=== PATIENT | male | born 1955 | race Caucasian/White ===

== ENCOUNTER → 2020-09-03 15:00 | Outpatient (CLI) | payer MEDICARE, SELFPAY ==
[2020-09-04 07:43] LABS: COVID19 Sendout Not Detected (Not Detect)
== END ==
PROVIDERS: PCP Internal Medicine; Visit Provider Physician Assistant
DX: Z11.59 Encounter for screening for other viral diseases (principal)
CPT/HCPCS: 87635

== ENCOUNTER 2020-09-06 12:07 | Day surgery (SDC) | payer MEDICARE, SELFPAY ==
--- NOTE | 2020-09-06 | PATH_ITS ---
[facility] Accession Number: [id number] . 01 Material submitted: . PART A: colon - EVANS COLITIS/COLON PART B: rectosigmoid junction - RECTOSIGMOID . 02 Diagnosis: A. Colon, Pancolitis, Biopsies: Moderately active colitis with associated distortion of the crypt architecture. Please see comment. Negative for CMV antigen by immunohistochemistry. Negative for granulomas, dysplasia, and malignancy. . B. Rectosigmoid, Biopsy: Severely active colitis with ulceration and associated distortion of the crypt architecture. Please see comment. Negative for CMV antigen by immunohistochemistry. Negative for granulomas, dysplasia, and malignancy. [facility] 09/13/2020 1631 Local . 02 Comment: A-B. There is active colitis associated with features of chronic inflammation, including branched crypt architecture and increased lymphocytes, plasma cells, and eosinophils in the lamina propria in both specimens. No obvious viral cytopathic effects or parasitic organisms are identified. The morphologic appearance could be compatible with idiopathic inflammatory bowel disease, in the appropriate clinical and endoscopic setting, if infection and medication related mucosal injury are excluded. . 02 Electronically signed: . Cayla Craig MD, Pathologist NPI- [id number] . 01 Gross description: . A. Received in formalin, labeled colon pancolitis, and consists of three garcia fragments of soft tissue measuring 0.5 x 0.4 x 0.2 cm in aggregate. The specimen is entirely submitted in cassette A1. B. Received in formalin, labeled rectosigmoid, and consists of three garcia fragments of soft tissue measuring 0.6 x 0.5 x 0.2 cm in aggregate. The specimen is entirely submitted in cassette B1. (EA:[id number]) /MRV 09/07/2020 1509 Local . 02 Microscopic: . A-B. Immunohistochemical stains were performed on blocks A and B in order to evaluate for CMV antigen and are both negative. The control stain showed appropriate reactivity. . * This test was developed and its performance characteristics determined by [facility]. It has not been cleared or approved by the U.S. Food and Drug Administration. The FDA has determined that such clearance or approval is not necessary. This test is used for clinical purposes. It should not be regarded as investigational or for research. . 02 Pathologist provided ICD-10: R19.7 . 02 CPT . 486363, 555100, N99244 Performed at: 01 [facility] [address] [facility], [place], [place] [id number] MD Jim Pickard MD Phone: [phone] Performed at: 02 [facility] [place] [address] [place], [place] [id number] MD Cayla Craig MD Phone: [phone]
[2020-09-06 12:32] VITALS: BP 138/92; PULSE 74; RESP 16; TEMP 35.9; O2SAT 100; BMI 25.1
--- NOTE | 2020-09-06 12:49 | SUR.PREOP ---
Dr. Coker notified that patient intends to take taxi to a [facility] and does not have help. Dr. Coker stated that if patient has a confirmed reservation for tonight at [facility] then he may take a taxi there rather than have someone pick him up. Called [facility] where patient stated he was staying and they verified that he does have a reservation there for tonight. Patient states that he will drive home to [place] after 24 hours after colonoscopy.
[2020-09-06] MEDS: SODIUM CHLORIDE 0.9% 1,000 ML 84 ML IV (13:02)
[2020-09-06] MEDS: fentaNYL 250 MCG/5 ML INJ IV (13:51)
[2020-09-06] MEDS: MIDAZOLAM 5 MG/5 ML VIAL IV (13:51)
--- NOTE | 2020-09-06 14:13 | P.OP.ENDO_ITS ---
Operative Date/Time/Diagnoses Date of procedure: 09/06/20 Pre-op diagnosis: See indication and findings Procedure & Clinicians Study performed: Colonoscopy Same procedure as scheduled: Yes Indications: Diarrhea and abnormal CT scan indicating thick-walled colon Surgeon: Racquel Coker Procedure Notes Procedure in detail: After informed consent was obtained the patient was placed in left lateral decubitus position. The video colonoscope was introduced the rectum slowly advanced to the cecum. Ic valve was identified and intubated. Preparation was only fair but given the indication completely acceptable for diagnosis. On slow withdrawal mucosa was carefully examined. Biopsies were t aken. The scope was removed. The patient tolerated procedure well. Blood loss none Complications none Sedation Total sedation time 18 minutes Versed 6 mg fentanyl 150 micro g IV titration Findings 1. Findings suggestive of ulcerative pancolitis. This included rectosigmoid with deep ulcerations in the rectum and then tapering amounts of inflammation throughout the remainder of the colon. In the right colon this meant some obliteration of the vascular pattern though incomplete and multiple small aphthous ulcers. Biopsies were taken throughout the colon. Another bottle was taken in the rectosigmoid given the increased severity of findings. 2. Normal terminal ileum I will inform Dr Branch of the above findings and he will need follow-up with him in the future.
[2020-09-06 14:16] VITALS: BP 108/72; PULSE 79; RESP 15; TEMP 36.3; O2SAT 92
[2020-09-06 14:21] VITALS: BP 115/81; PULSE 80; RESP 15; O2SAT 92
[2020-09-06 14:26] VITALS: BP 108/76; PULSE 75; RESP 20; O2SAT 96
[2020-09-06 14:31] VITALS: BP 138/89; PULSE 93; RESP 14; O2SAT 97
[2020-09-06 14:36] VITALS: BP 136/85; PULSE 86; RESP 14; TEMP 36.3; O2SAT 96
--- NOTE | 2020-09-06 14:41 | SUR.PHASEI ---
Pt transferred to pacu phase 2 in stable condition and report given to GARRICK Haas
== END 2020-09-06 15:03 | disposition home or self-care (01) ==
PROVIDERS: PCP Internal Medicine; Referring Provider Internal Medicine Gastroenterology; Visit Provider Internal Medicine Gastroenterology
PROC: 0DJD8ZZ Inspection of Lower Intestinal Tract, Via Natural or Artificial Opening Endoscopic (ICD-10-PCS; CPT 45378; principal; 2020-09-06 14:00)
DX: K52.9 Noninfective gastroenteritis and colitis, unspecified (principal); R63.4 Abnormal weight loss; B18.2 Chronic viral hepatitis C; K63.3 Ulcer of intestine
CPT/HCPCS: 45380; J2250; J3010

== ENCOUNTER 2020-11-17 19:36 | Emergency (ER) | payer MEDICARE, MEDICAID, SELFPAY ==
[2020-11-17] VITALS (8 sets, daily range): BP systolic 146–179; BP diastolic 80–105; PULSE 78–124; RESP 16–18; TEMP 36.9; O2SAT 98–100; BMI 24.3
[2020-11-17 20:12] LABS: Add Manual Diff / Slide Review NO; Basophils Absolute Auto 0 /uL (0-100); Basophils Percent Auto 0.4 % (0-2); Eosinophils Absolute Auto 400 /uL (0-450); Eosinophils Percent Auto 3.8 % (2-4); Hematocrit 46.2 % (41-53); Hemoglobin 15.5 g/dL (13.5-17.5); Lymphocytes Absolute Auto 2800 /uL (1100-4500); Lymphocytes Percent Auto 26.6 % (25-40); Mean Corpuscular HGB Conc 33.5 % (30-36); Mean Corpuscular Hemoglobin 29.7 PG (26-34); Mean Corpuscular Volume 88.6 fL (80-100); Monocytes Absolute Auto 900 /uL (0-900); Monocytes Percent Auto 8.9 % (3-14); Neutrophils Absolute Auto 6300 /uL (1500-7000); Neutrophils Percent Auto 60.3 % (50-75); Platelet Count 479 X10^3/uL (150-400); Red Blood Cell Count 5.21 X10^6/uL (4.5-5.9); Red Cell Distribution Width 12.6 % (11.6-14.8); White Blood Cell Count 10.4 X10^3/uL (4.5-11.0)
[2020-11-17 20:21] LABS: Alanine Aminotransferase 29 IU/L (<50); Albumin 4.6 g/dL (3.5-5.0); Albumin Globulin Ratio 1.1 (1.0-2.8); Alkaline Phosphatase 71 U/L (38-126); Aspartate Aminotransferase 34 IU/L (17-59); BUN Creatinine Ratio 14.4 (6-22); Bilirubin Total 1.4 mg/dL (0.2-1.3); Blood Urea Nitrogen 14 mg/dL (9-20); Calcium 9.6 mg/dL (8.4-10.2); Carbon Dioxide 30 mmol/L (22-32); Chloride 101 mmol/L (98-107); Estimated Glomerular Filt Rate > 60.0 mL/min (>60); Globulin 4.3 g/dL (1.7-4.1); Glucose 114 mg/dL (80-110); HEMOLYSIS < 15 (0-50); Potassium 3.7 mmol/L (3.4-5.1); Sodium 139 mmol/L (137-145); Total Protein 8.9 g/dL (6.3-8.2)
[2020-11-17] MEDS: SODIUM CHLORIDE 0.9% 1,000 ML 1000 ML IV (20:24)
--- NOTE | 2020-11-17 20:53 | ED_ITS ---
HPI - Recheck/Abnormal Lab/Rx General Chief Complaint: Recheck/Abnormal Lab/Rx Stated Complaint: immune disorder/ not being able to go to bathroom Time Seen by Provider: 11/17/20 19:40 Source: patient Mode of arrival: Ambulatory Limitations: no limitations History of Present Illness HPI narrative: 65M nonsmoker with extensive GI history presents with ongoing rectal pain for many months and complains that it is worse now because he ran out of his meds. He states he has had widespread bowel inflammation for a few months which seems to be made worse by some unknown medication given to him by his GI doctor. He had a CT at [facility] which has been reviewed and was largely unremarkable. He then had colonoscopy which demonstrated widespread irritation. He was started on Budesonide yesterday. He's had no N/V/D. He states that he develops widespread burning pain in his abdomen frequently with eating. He's had no bleeding. He denies fever or chills. He has a good relationship with his GI doctor and upcoming appointments. He states he is in his normal state of health, just that he ran out of his pain medications. Related Data Previous Rx's Medication Instructions Recorded acetaminophen-codeine 1 tab PO Q8H PRN #10 tab 11/17/20 Allergies Allergy/AdvReac Type Severity Reaction Status Date / Time ledipasvir [From Harvoni] AdvReac Verified 11/17/20 19:49 sofosbuvir [From Harvoni] AdvReac Verified 11/17/20 19:49 Review of Systems Constitutional Constitutional: Denies chills, Denies fatigue, Denies fever(s), Denies frequent falls, Denies lethargy and Denies weakness Eyes Eyes: Denies change in vision, Denies eye discharge, Denies irritation and Denies loss of vision ENT Ears, Nose, Mouth, and Throat: Denies change in voice, Denies dizziness, Denies neck pain, Denies sore throat and Denies throat swelling Cardiovascular Cardiovascular: Denies chest pain, Denies irregular heart rhythm, Denies lightheadedness, Denies palpitations, Denies dyspnea, Denies dyspnea on exertion and Denies orthopnea Respiratory Respiratory: Denies cough, Denies dyspnea, Denies dyspnea on exertion and Denies wheezing Gastrointestinal Gastrointestinal: Reports abdominal pain, Denies change in bowel habits, Denies diarrhea, Denies nausea and Denies vomiting Musculoskeletal Musculoskeletal: Denies neck pain and Denies numbness Integumentary/Breasts Skin/Breast: Denies pruritus, Denies erythema, Denies rash and Denies wounds Neurologic Neurologic: Denies behavioral changes, Denies confusion, Denies dizziness, Denies frequent falls, Denies loss of vision, Denies numbness and Denies weakness Psychiatric Psychiatric: Denies anxiety, Denies behavioral changes, Denies confusion, Denies depression, Denies homicidal ideation and Denies suicidal ideation Endocrine Endocrine: Denies fatigue, Denies flushing and Denies palpitations Hematologic/Lymphatic Hematologic/Lymphatic: Denies easy bruising Allergic/Immunologic Allergic/Immunologic: Denies urticaria, Denies throat swelling and Denies wheezing Patient History Social History household members: family Smoking Status: Never smoker alcohol intake: never Smoking Status: Never smoker Substance Use Type: does not use Exam Narrative Exam Narrative: GENERAL: [65] year old patient appears stated age. Thin, mild distress HEAD: Atraumatic. Normocephalic. EYES: Pupils equal round and reactive. Extraocular motions intact. No scleral icterus. No injection or drainage. ENT: Nose without bleeding, purulent drainage. Throat without erythema, tonsillar hypertrophy or exudate. Airway patent. NECK: Trachea midline. Non tender CARDIOVASCULAR: Regular rate and rhythm without murmurs, gallops, or rubs. RESPIRATORY: Clear to auscultation. Breath sounds equal bilaterally. No wheezes, rales, or rhonchi. GASTROINTESTINAL: Abdomen soft, non-tender, nondistended. RECTAL: no bleeding, hemorrhoids, fissure or other abnormal findings. Performed with patient permission and nursing plating operator at bedside EXTREMITIES: No edema or joint tenderness. BACK: Nontender without deformity or crepitance. No flank tenderness. NEURO: AOx3. SKIN: No rash or erythema of visible areas Initial Vital Signs Initial Vital Signs: Vital Signs Blood Pressure 179/105 H 11/17/20 19:44 Course Orders Ordered: Discontinued Medications Acetaminophen/Codeine Phosphate (Codeine/Apap 30/300 Prepack) 1 bottle MISC SEEINSTR ONE Stop: 11/17/20 22:31 Last Admin: 11/17/20 22:34 Dose: 1 bottle Documented by: RMARTIN Sodium Chloride (Normal Saline 0.9%) 1,000 mls @ 1,000 mls/hr IV BOLUS ONE Stop: 11/17/20 20:58 Last Infusion: 11/17/20 22:35 Dose: 0 mls/hr Documented by: Admin: 11/17/20 20:24 Dose: 1,000 mls/hr Documented by: YAMILA Vital Signs Vital signs: Vital Signs - 8 hr 11/17/20 22:39 Pulse Rate 88 Respiratory Rate 16 Blood Pressure 166/90 H Pulse Oximetry 99 MDM - Recheck/Abnormal Lab/Rx Lab Data Result diagrams: 11/17/20 20:04 11/17/20 20:04 Labs: Lab Results 11/17/20 11/17/20 Range/Units 20:04 20:04 WBC 10.4 (4.5-11.0) X10^3/uL RBC 5.21 (4.5-5.9) X10^6/uL Hgb 15.5 (13.5-17.5) g/dL Hct 46.2 (41-53) % MCV 88.6 (80-100) fL MCH 29.7 (26-34) PG MCHC 33.5 (30-36) % RDW 12.6 (11.6-14.8) % Plt Count 479 H (150-400) X10^3/uL Neut % (Auto) 60.3 (50-75) % Lymph % (Auto) 26.6 (25-40) % Kent % (Auto) 8.9 (3-14) % Eos % (Auto) 3.8 (2-4) % Baso % (Auto) 0.4 (0-2) % Neut # (Auto) 6300 (3135-3416) /uL Lymph # (Auto) 2800 (9336-9839) /uL Kent # (Auto) 900 (0-900) /uL Eos # (Auto) 400 (0-450) /uL Baso # (Auto) 0 (0-100) /uL Sodium 139 (137-145) mmol/L Potassium 3.7 (3.4-5.1) mmol/L Chloride 101 (98-107) mmol/L Carbon Dioxide 30 (22-32) mmol/L BUN 14 (9-20) mg/dL Creatinine 0.97 (0.66-1.25) mg/dL Estimated GFR > 60.0 (>60) mL/min BUN/Creatinine Ratio 14.4 (6-22) Glucose 114 H (80-110) mg/dL Calcium 9.6 (8.4-10.2) mg/dL Total Bilirubin 1.4 H (0.2-1.3) mg/dL AST 34 (17-59) IU/L ALT 29 (<50) IU/L Alkaline Phosphatase 71 (38-126) U/L Total Protein 8.9 H (6.3-8.2) g/dL Albumin 4.6 (3.5-5.0) g/dL Globulin 4.3 H (1.7-4.1) g/dL Albumin/Globulin Ratio 1.1 (1.0-2.8) Discharge Plan Departure Patient Disposition: Home Clinical Impression: Chronic abdominal pain Instructions: DI for Abdominal Pain-Adult Activity Restrictions/Additional Instructions: *You have been diagnosed with [chronic abdominal pain with rectal pain] *What to do: *Take medications as directed *Follow up with your senior climate advisor as planned, call for an appointment. Let them know you were seen in the Emergency Department and that we ask that you be seen in follow up *Return to ER if you should have any new, worsening or concerning symptoms, such as [increasing pain, fever, shaking chills or other bothersome symptoms] Prescriptions: New acetaminophen-codeine 300-30 mg tablet 1 tab PO Q8H PRN (Reason: pain) Qty: 10 RF: 0 Referrals: Theron Alejandro MD [Primary Care Provider] -
[2020-11-17] MEDS: CODEINE/APAP 30/300 PREPACK 1 BOTTLE MISC (22:34)
== END 2020-11-17 22:41 | disposition home or self-care (01) ==
PROVIDERS: Emergency Provider Emergency Medicine; PCP Internal Medicine
DX: R10.9 Unspecified abdominal pain (principal); K62.89 Other specified diseases of anus and rectum
CPT/HCPCS: 36415; 80053; 85025; 96360; 96361; 99281; 99284

== ENCOUNTER 2021-04-11 11:47 | Day surgery (SDC) | payer MEDICARE, MEDICAID, SELFPAY ==
[2021-04-11] VITALS (7 sets, daily range): BP systolic 110–147; BP diastolic 72–86; PULSE 77–96; RESP 12–20; TEMP 36.2–37.2; O2SAT 92–100; BMI 19.1
--- NOTE | 2021-04-11 | PATH_ITS ---
[facility] Accession Number: [id number] . 01 Material submitted: . PART A: stomach - BODY ANTRUM BIOPSY PART B: esophagus, E-G Junction - GE JUNCTION BIOPSY . 02 Diagnosis: A. Stomach, Body Antrum, Biopsies: Antral and body type mucosa with mild chronic gastritis. Negative for Helicobacter by immunohistochemistry. Negative for intestinal metaplasia. Negative for dysplasia and malignancy. . B. Gastroesophageal Junction, Biopsy: Squamocolumnar junctional mucosa with no diagnostic abnormality. Negative for intestinal metaplasia. Negative for dysplasia and malignancy. . [facility] 04/17/2021 1635 Local . 02 Electronically signed: . Cayla Craig MD, Pathologist NPI- [id number] . 01 Gross description: . Part A: BODY ANTRUM BIOPSY: Received in formalin are 4 fragment(s) of garcia, soft tissue measuring 0.3 x 0.1 x 0.1 cm to 0.4 x 0.2 x 0.2 cm submitted entirely in 1 cassette(s) Part B: GE JUNCTION BIOPSY: Received in formalin is 1 fragment(s) of garcia, soft tissue measuring 0.3 x 0.1 x 0.1 cm submitted entirely in 1 cassette(s) /ALEJANDRO 04/12/2021 2012 Local . 02 Microscopic: . A. An immunohistochemical stain was performed to evaluate for Helicobacter organisms and is negative. The control stain showed appropriate reactivity. . B. An alcian blue stain was performed to evaluate for intestinal metaplasia and is negative. The control stain showed appropriate reactivity. . * This test was developed and its performance characteristics determined by [facility]. It has not been cleared or approved by the U.S. Food and Drug Administration. The FDA has determined that such clearance or approval is not necessary. This test is used for clinical purposes. It should not be regarded as investigational or for research. . 02 Pathologist provided ICD-10: R10.84 . 02 CPT . 598110, 820275, 035709, E08495 Performed at: 01 [facility] [address] [address], [place], [place] [id number] MD Jim Pickard MD Phone: [phone] Performed at: 02 [place] [id number] [place] [id number] MD Cayla Craig MD Phone: [phone]
--- NOTE | 2021-04-11 08:04 | PM.HP.1 ---
History of Present Illness History of Present Illness Date Patient Seen: 04/11/21 Chief complaint: EGD W/POSS BX Narrative: 64-year-old male with a history of ulcerative colitis being seen today for upper GI symptoms of abdominal discomfort, and nausea and vomiting Patient History Family & Social History Social History: household members family Tobacco & Substance use: Smoking Status Never smoker alcohol intake never Substance Use Type does not use Meds Home Medications and Allergies Home Medications Medication Instructions Recorded Confirmed Type acetaminophen-codeine 1 tab PO Q8H PRN #10 tab 11/17/20 04/11/21 Rx budesonide 9 mg PO DAILY 04/11/21 04/11/21 History Allergies Allergy/AdvReac Type Severity Reaction Status Date / Time ledipasvir [From Harvoni] AdvReac Verified 11/17/20 19:49 sofosbuvir [From Harvoni] AdvReac Verified 11/17/20 19:49 Exam Narrative Exam Narrative: General: Patient is well developed, not in apparent distress Cardiovascular: Regular rate and rhythm, no murmurs, rubs, or gallops; no evidence of edema; no palpable abdominal aortic aneurysm Gastrointestinal: Normoactive bowel sounds, soft, nontender, nondistended, no rebound tenderness, no hepatosplenomegaly, no evidence of hernia Assessment & Plan Assessment & Plan narrative: 66-year-old male with history of ulcerative colitis here for further evaluation of upper GI symptoms of abdominal discomfort and nausea and vomiting, not responsive to medication Regarding the procedure(s), the risks and potential complications, benefits, and alternatives (including not doing the procedure) were discussed with the patient. The risks include but are not limited to bleeding, splenic injury, infection, perforation which may require surgical intervention, missed lesions, and adverse reactions to sedative medicines. After a question and answer period, the patient agreed to proceed with the procedure(s) and gives informed consent.
--- NOTE | 2021-04-11 08:06 | PM.HP.1 ---
History of Present Illness History of Present Illness Date Patient Seen: 04/11/21 Chief complaint: EGD W/POSS BX Narrative: 64-year-old male with a history of ulcerative colitis being seen today for upper GI symptoms of abdominal discomfort Patient History Family & Social History Social History: household members family Tobacco & Substance use: Smoking Status Never smoker alcohol intake never Substance Use Type does not use Meds Home Medications and Allergies Home Medications Medication Instructions Recorded Confirmed Type acetaminophen-codeine 1 tab PO Q8H PRN #10 tab 11/17/20 Rx Allergies Allergy/AdvReac Type Severity Reaction Status Date / Time ledipasvir [From Harvoni] AdvReac Verified 11/17/20 19:49 sofosbuvir [From Harvoni] AdvReac Verified 11/17/20 19:49
[2021-04-11 12:28] LABS: COVID19 -Nasal RAPID Negative (Negative)
[2021-04-11] MEDS: SODIUM CHLORIDE 0.9% 1,000 ML 70 ML IV (13:19)
--- NOTE | 2021-04-11 13:28 | P.OP.ENDO_ITS ---
Operative Date/Time/Diagnoses Date of procedure: 04/11/21 Procedure Notes Procedure in detail: Surgeon: Glen Malhotra MD Procedure: Esophagogastroduodenoscopy with biopsy Preoperative diagnosis: Upper abdominal discomfort, nausea and vomiting, not responsive to therapy Postoperative diagnosis: Irregular Z-line status post biopsy; gastric erythema status post biopsy Medications: 2cc Viscous lidocaine 4%; Conscious sedation using 5 mg IV of Midazolam and 150 mcg IV of Fentanyl Preanesthesia Assessment An H and P was performed/updated and the Px?s ASA class is 2. The procedure was discussed in detail with the patient. The potential risks and complications including infection, bleeding, missed lesions, perforation, need for surgery in case of perforation, prolonged hospital stay, and were explained. A brief question and answer period was allotted and once all questions were answered, informed consent was obtained. The patient was brought back to the procedure room and placed on standard monitoring. The patient?s vital signs were monitored continuously throughout the entire procedure. Prior to starting, a timeout was performed to confirm the patient?s identity, allergies, medications, and procedure. Procedure in detail The patient was placed in left lateral decubitus position and a bite block was inserted. The tip of the upper endoscope was placed into the mouth and advanced without difficulty under direct visualization into the esophagus. Esophagus: Irregular Z-line at 42 cm from the incisors status post biopsy to rule out Gil's esophagus with minimal bleeding; esophageal mucosa otherwise normal Stomach: Mild antral patchy erythema; biopsies taken from the body and antrum to rule out H pylori with minimal bleeding Duodenum: Normal duodenal mucosa up to the 2nd portion of the duodenum The patient tolerated the procedure well and will be brought back to the recovery area to be discharged once criteria are met. The total physician intraservice time was 10 minutes. Complications There were no complications and estimated blood loss was minimal. Recommendations: Resume previous diet Continue outPx medications Follow up pathology results Call our office ([facility]) to schedule follow-up with Dr Branch in 4 weeks An emergency contact number was given to the patient for any complications related to the procedure
[2021-04-11] MEDS: LIDOCAINE 4% SOLN 50 ML 20 ML TOP (13:36)
[2021-04-11] MEDS: fentaNYL 250 MCG/5 ML INJ IV (13:43)
[2021-04-11] MEDS: MIDAZOLAM 5 MG/5 ML VIAL IV (13:43)
--- NOTE | 2021-04-11 14:39 | SUR.PHASEII ---
1425 Discharge patient care by John Stein RN, documentation by Chaparro Almaraz RN
== END 2021-04-11 14:36 | disposition home or self-care (01) ==
PROVIDERS: PCP Internal Medicine; Referring Provider Internal Medicine; Visit Provider Internal Medicine Gastroenterology
PROC: 0DJ08ZZ Inspection of Upper Intestinal Tract, Via Natural or Artificial Opening Endoscopic (ICD-10-PCS; CPT 43235; principal; 2021-04-11 13:00)
DX: K29.50 Unspecified chronic gastritis without bleeding (principal); R11.2 Nausea with vomiting, unspecified; R63.4 Abnormal weight loss; R19.7 Diarrhea, unspecified; Z20.822 Contact with and (suspected) exposure to COVID-19
CPT/HCPCS: 43239; 87635; J2250; J3010